=== PATIENT | male | born 1965 | race Caucasian/White ===

== ENCOUNTER 2018-11-24 12:25 | Emergency (ER) | payer OTHER, SELFPAY ==
[~2018-11-24] VITALS: Ht 180.3 cm; Wt 73.2 kg
[2018-11-24] MEDS ORDERED: MORPHINE 4 MG/ML 1ML VIAL/SYRINGE (J2270) IV ONE ×2 (13:00→14:00)
[2018-11-24] MEDS ORDERED: NS 1,000 ML IV ONE (13:00)
[2018-11-24] MEDS ORDERED: ONDANSETRON 4MG/2ML VIAL (J2405) IV ONE (13:00)
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
[2018-11-24] MEDS: PROPOFOL 200 MG/20 ML VIAL IV PRN ×4 (13:20→13:24)
--- NOTE | 2018-11-24 14:05 | REP ---
Clinical: Status post reduction. Technique: Single portable AP view of the left shoulder. Findings: Satisfactory glenohumeral reduction is appreciated. No obvious acute fracture. Impression: Satisfactory reduction at the glenohumeral joint. Electronically Signed by Dequan Steele MD 11/24/2018 01:56 P
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
[2018-11-24 15:26] VITALS: BP 153/88
== END 2018-11-24 15:28 | disposition home or self-care (01) ==
LOC: M ED 12:25
DX: S43.015A Anterior dislocation of left humerus, initial encounter (principal); S50.02XA Contusion of left elbow, initial encounter; V86.52XA Driver of snowmobile injured in nontraffic accident, initial encounter; Y92.89 Other specified places as the place of occurrence of the external cause
CPT/HCPCS: 23650; 73020; 73030; 73080; 93041; 94760; 96374; 96375; 96376; 99285; J2270; J2405